=== PATIENT | female | born 1950 | race Caucasian/White ===

== ENCOUNTER 2020-12-16 18:36 | Emergency (ER) | payer MEDICARE ==
[2020-12-16 19:56] LABS: BASOPHIL 0.6 % (0-2); EOSINOPHIL 1.7 % (0-7); HCT 40.3 % (37.0-47.0); LYMPHOCYTE 35.6 % (15-48); MCH 29.9 pg (25.0-31.0); MCHC 32.3 g/dL (32.0-36.0); MCV 92.6 fL (78.0-100.0); MONOCYTE 7.9 % (0-12); MPV 9.4 fL (6.0-9.5); NEUTROPHIL 53.6 % (41-80); NRBC 0; PLT 351 K/uL (150-400); RBC 4.35 M/uL (4.20-5.40); RDW 12.2 % (11.5-14.0)
[2020-12-16 20:00] LABS: WBC 6.3 K/uL (4.0-10.5)
[2020-12-16 20:04] LABS: BILIRUBIN 1+ mg/dL (NEGATIVE); BLOOD NEGATIVE Ery/uL (NEGATIVE); CLARITY CLEAR (CLEAR); COLOR YELLOW (YELLOW); GLUCOSE (U) NORMAL (NORMAL); LEUKOCYTES NEGATIVE Leu/uL (NEGATIVE); NITRITE NEGATIVE (NEGATIVE); PROTEIN 2+ mg/dL (NEGATIVE); SPECIFIC GRAVITY 1.025 (1.001-1.030); UROBILINOGEN 0.2 mg/dL (0.2-1.0)
[2020-12-16 20:11] LABS: ALBUMIN 3.3 g/dL (3.4-5.0); BILIRUBIN - TOTAL 0.4 mg/dL (0.2-1.0); BUN/CREAT RATIO (CALC) 25.9 RATIO; CREATININE 0.81 mg/dL (0.51-0.95); GLOBULIN (CALCULATION) 4.5 g/dL; POTASSIUM 2.8 mmol/L (3.5-5.1); TOTAL PROTEIN 7.8 g/dL (6.4-8.2)
[2020-12-16 20:19] LABS: LACTIC ACID 1.4 mmol/L (0.4-1.9)
[2020-12-16 20:22] LABS: URINARY WBC RARE
[2020-12-16 20:23] LABS: BACTERIA TRACE
[2020-12-16 20:33] LABS: CORONAVIRUS 2019 SARS-COV-2 POSITIVE (NEGATIVE); INFLUENZA A NAA NEGATIVE (NEGATIVE)
[2020-12-16] MEDS ORDERED: K-DUR20 MEQ PO (21:40)
== END 2020-12-16 22:47 | disposition home or self-care (01) ==
LOC: FER 18:36
PROVIDERS: Emergency Medicine
DX: U07.1 COVID-19 (principal); E87.6 Hypokalemia; R94.5 Abnormal results of liver function studies; Z88.5 Allergy status to narcotic agent
CPT/HCPCS: 36415; 71045; 80053; 81001; 83605; 85025; J7030; J7050; M0239; U0002